=== PATIENT | male | born 2000 | race Caucasian/White ===

== ENCOUNTER 2021-02-24 18:00 | Emergency (ER) | payer OTHER ==
[2021-02-24 18:20] VITALS: TEMP 98.1
[2021-02-24] MEDS ORDERED: methylPREDNISolone SOD SUCCI 125 MG/2 ML VIAL IM ONE (19:32)
--- NOTE | 2021-02-24 19:35 | ED ---
Skin/Abscess/FB HPI - General Chief complaint: Skin/Abscess/Foreign Body Stated complaint: rash Time Seen by Provider: 02/24/21 19:26 Source: patient Mode of arrival: ambulatory Limitations: no limitations - History of Present Illness Initial comments: 20 year-old male patient presents to the emergency department for evaluation of rash. States symptoms have been present for the last couple of days. States it started when he was at a friends house. Denies coming into contact with any plants, new foods, medications, lotions, creams, or substances. If the rash is itchy and does burn. Denies any lip, tongue, or throat swelling. Denies fever or chills. Denies any other symptoms or concerns. States he did take some Benadryl at seem to help. States he has been applying medication specifically for poison jace and poison oak. Denies any history of similar symptoms. - Related Data Previous Rx's Medication Instructions Recorded Hydrocortisone Cream 1 applic TOPICAL TID PRN #15 gm 02/24/21 [Hydrocortisone 1% Cream] predniSONE 50 mg PO DAILY #5 tablet 02/24/21 Allergies Allergy/AdvReac Type Severity Reaction Status Date / Time No Known Allergies Allergy Verified 02/24/21 18:17 Review of Systems ROS Statement: Those systems with pertinent positive or pertinent negative responses have been documented in the HPI. ROS Other: All systems not noted in ROS Statement are negative. Past Medical History Past Medical History: Hypertension History of Any Multi-Drug Resistant Organisms: None Reported Past Surgical History: No Surgical Hx Reported Past Psychological History: No Psychological Hx Reported Smoking Status: Current every day smoker Past Alcohol Use History: None Reported Past Drug Use History: None Reported General Exam Limitations: no limitations General appearance: alert, in no apparent distress, other (This is a well- developed, well-nourished adult male patient in no acute distress. Vital signs upon presentation temperature 98.1F, pulse 89, respirations 20, blood pressure 144/100, pulse ox 97% on room air.) ENT exam: Present: normal exam, normal oropharynx, mucous membranes moist Respiratory exam: Present: normal lung sounds bilaterally. Absent: respiratory distress, wheezes, rales, rhonchi, stridor Cardiovascular Exam: Present: regular rate, normal rhythm, normal heart sounds. Absent: systolic murmur, diastolic murmur, rubs, gallop, clicks Neurological exam: Present: alert, oriented X3, CN II-XII intact Psychiatric exam: Present: normal affect, normal mood Skin exam: Present: warm, dry, intact, normal color, rash (There are patches of erythematous vesicular rash noted to right forearm, right flank, right upper back. Lesions are non-petechial, non-purpuric.) Course Vital Signs 02/24/21 02/24/21 18:17 19:51 Temperature 98.1 F 98.1 F Pulse Rate 89 70 Respiratory 20 16 Rate Blood Pressure 144/100 122/72 O2 Sat by Pulse 97 98 Oximetry Medical Decision Making - Medical Decision Making 20-year-old male patient presented to the emergency department today for evaluation of itchy burning rash. Physical examination did reveal rash to the arms and did contact dermatitis. Given prescription for hydrocortisone cream and steroids. He is instructed to continue Benadryl as needed for symptom relief. He is instructed to follow-up with the primary care physician for recheck in 1-2 days. Return parameters were discussed in detail. He verbalizes understanding and agrees with this plan. My attending is Dr. Stoddard. Disposition Clinical Impression: Contact dermatitis Disposition: HOME SELF-CARE Condition: Good Instructions (If sedation given, give patient instructions): Contact Dermatitis (ED) Additional Instructions: Take medications as directed. Apply cream three times daily. Take [id number] Benadryl and ibuprofen as needed for pain and itching. Follow- up with your primary care physician for recheck in 1-2 days. Return to the emergency department for any new, worsening, or concerning symptoms. Prescriptions: Hydrocortisone Cream [Hydrocortisone 1% Cream] 1 applic TOPICAL TID PRN #15 gm PRN Reason: Itching predniSONE 50 mg PO DAILY #5 tablet Is patient prescribed a controlled substance at d/c from ED?: No Referrals: None,Stated [Primary Care Provider] - 1-2 days Time of Disposition: 19:34
[2021-02-24 19:52] VITALS: BP 122/72; PULSE 70; RESP 16
== END 2021-02-24 19:52 | disposition home or self-care (01) ==
LOC: EC 18:00
DX: L25.9 Unspecified contact dermatitis, unspecified cause (principal); I10 Essential (primary) hypertension; F17.200 Nicotine dependence, unspecified, uncomplicated
CPT/HCPCS: 99282; 96372; J2930